=== PATIENT | male | born 1980 | race Asian ===

== ENCOUNTER 2022-01-18 09:09 | Emergency (ER) | payer OTHER, SELFPAY ==
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
[2022-01-18 09:21] VITALS: BP 132/94; PULSE 73; RESP 16; TEMP 37.1; O2SAT 98
== END 2022-01-18 09:40 | disposition home or self-care (01) ==
PROVIDERS: Emergency Provider Nurse Practitioner; PCP Internal Medicine
DX: S39.012A Strain of muscle, fascia and tendon of lower back, initial encounter (principal); V89.2XXA Person injured in unspecified motor-vehicle accident, traffic, initial encounter; M25.531 Pain in right wrist; I10 Essential (primary) hypertension
CPT/HCPCS: 99213; G0463

== ENCOUNTER 2024-12-29 08:25 | Outpatient (CLI) | payer OTHER, SELFPAY ==
--- OUTSIDE RECORDS SUMMARY | 2024-12-29 08:34 | XMS_ITS | Clinical Summary ---
Author Organization [facility] [address] [place] [address] Care Team Providers Care Chuck Tender Name Role Phone Adelso Silva DO Primary Care Provider [phone] Allergies No known active allergies Medications metoprolol barahona-hydrochloroth iaz 25-12.5 mg tablet extended release 24 hr Take by mouth daily Active ibuprofen (ADVIL,MOTRIN) 400 mg tablet Take by mouth every 8 (eight) hours as needed for pain Active ascorbic acid (vitamin C) 1,000 mg tablet Take 1,000 mg by mouth daily Active cholecalciferol, vitamin D3, (VITAMIN D3 ORAL) Take by mouth Active Active Problems No known active problems Immunizations Immunization Administration Dates Next Due Tdap 12/20/2020 Social History Tobacco Use Types Packs/Day Years Used Date Smoking Tobacco: Never Smokeless Tobacco: Never Tobacco Cessation:Counseling Given: Not Answered Personal Safety Answer Date Recorded Getting School Help Needed Not on file 08/31 Sex and Gender Information Value Date Recorded Sex Assigned at Not on file Legal Sex Male 4:37 PM CDT Gender Identity Not on file Sexual Orientation Not on file Obstetrics History Last Filed Vital Signs Vital Sign Reading Time Taken Comments Blood Pressure 147/99 04/02/2022 3:11 PM CDT Pulse 92 04/02/2022 3:11 PM CDT Temperature 36.7 C (98 F) 03/25/2022 4:46 PM CDT Respiratory Rate 16 03/25/2022 4:46 PM CDT Oxygen Saturation 98% 03/25/2022 4:46 PM CDT Inhaled Oxygen Concentration - - Weight 77.6 kg (171 lb) 04/02/2022 3:11 PM CDT Height 165.1 cm (5' 5) 04/02/2022 3:11 PM CDT Body Mass Index 28.46 04/02/2022 3:11 PM CDT Plan of Treatment Health Maintenance Due Date Last Done Comments Colon Cancer Screening-Colonoscopy 1979 Depression Screening 1979 Hepatitis C Screening 1979 Varicella Vaccines (1 of 2 - 13+ 2-dose series) 10/26/1992 Hepatitis B Screening 10/26/1997 Regular Well Visit/Exam 18-64 10/26/1997 Covid-19 Vaccine ( - 2023-2 5 season) 2024 05/05/2021, 07/26/2020, 06/28/2020 Influenza Vaccine (Season Ended) 2025 DTaP/Tdap/Td Vaccine (2 - Td or Tdap) 12/20/2030 12/20/2020 HPV Vaccines Aged Out No longer eligi ble based on patient's age to complete this topic Pneumococcal vaccine <65 Aged Out No longer eligible based on patient's age to complete this topic Insurance [facility] Care Teams Chuck Tender Relationship Specialty Start Date End Date Adelso Silva DO PCP - General Internal Medicine 03/25/22
--- OUTSIDE RECORDS SUMMARY | 2024-12-29 08:34 | XMS_ITS | Clinical Summary ---
Author Organization [facility] Address [address] [place] [id number] Phone Care Team Providers Care Block Trader Name Role Phone Unavailable Primary Care Provider Unavailabl e Social History Tobacco Use Types Packs/Day Years Used Date Smoking Tobacco: Never Assessed Sex and Gender Information Value Date Recorded Sex Assigned at Not on file Legal Sex Male 8:40 AM CDT Gender Identity Not on file Sexual Orientation Not on file Plan of Treatment Health Maintenance Due Date Last Done Comments DTAP/TDAP/TD VACCINES (1 - Tdap) 10/26/1998 HEPATITIS B VACCINES (1 of 3 - 19+ 3-dose series) 10/26/1998 COLORECTAL SCREENING 10/26/2024 Colorectal Cancer Screening 10/26/2024 FIT-DNA Q 3 years 10/26/2024 FIT/FOBT Q 1 year 10/26/2024 Flex Sig/CT Colonography Q 5 years 10/26/2024 INFLUENZA VACCINE (#1) 2025 HPV VACCINES Aged Out No longer eligi ble based on patient's age to complete this topic Insurance BCBS BLUE ACCESS/TRUE BLUE PPO
--- OUTSIDE RECORDS SUMMARY | 2024-12-29 08:34 | XMS_ITS | Referral Summary ---
Author Organization [facility] [address] [place] [address] Care Team Providers Care Rn Admission Name Role Phone Adelso Silva DO Primary Care Provider [phone] Allergies No known active allergies Medications metoprolol [...] on file Sexual Orientation Not on file Last Filed Vital Signs Vital Sign Reading [...] 04/02/2022 3:11 PM CDT Plan of Treatment Not on file Insurance [facility] Care Teams Rn Admission Relationship Specialty Start Date End Date Adelso Silva DO NPNeyda: [phone] PCP - General Internal Medicine 03/25/22
[2025-01-19 11:00] VITALS: BMI 29.1
--- NOTE | 2025-01-19 11:00 | WPDHOMESLEEP ---
Sleep Study - Home Unattended Date of Study: 12/29/24 Ordering Provider: Sharath Ardon MD Interpreting Provider: Gisselle Marley DO Home Sleep Study Type: Watch PAT Height: 1.65 m Weight: 79.379 kg Body Mass Index: 29.1 Neck Circumference (inches): 15 [place]: 0 Reason for Sleep Study snoring Sleep History The patient is a 44-year-old male that had a sleep study ordered by his primary care physician for evaluation of sleep apnea. The patient admits to snoring. He denies interruptions in breathing while asleep. He denies choking or gasping at night. He denies having trouble breathing on his back. He denies morning headaches. He does have a dry or sore mouth / throat in the morning. He denies nocturnal heartburn. He denies nocturia. He denies having trouble falling or staying asleep. He does have difficulty returning to sleep if he wakes up throughout the night. He denies any hypnotic or sedative use. He denies feeling anxious about sleep. He denies feeling tired or sleepy during the day. He denies feeling tired in the morning. He denies having the urge to fall asleep during the day. He denies feeling drowsy while driving. He denies sleep paralysis, cataplexy and hypnagogic/ hypnopompic hallucinations. He denies clenching or grinding his teeth. He denies kicking or jerking his legs excessively. He denies having a restless feeling in his legs. He goes to bed at 11:30 p.m. on work days and at midnight on his days off. It takes him 15 minutes to fall asleep. He gets 6 hours and 15 minutes of sleep on work days and 6 hours and 30 minutes on his days off. His sleep is somewhat restorative on days off. He denies taking any planned naps. He denies dream enactment behavior. He denies sleep walking. He consumes 1-2 cups of caffeinated beverage per day. He has 1 alcoholic beverage 1-2 nights per week. He denies tobacco use. He denies exercising on a regular basis. [facility] Past Medical History Medical History Prediabetes Essential hypertension Hypovitaminosis D Dyslipidemia Surgical History Surgical History History of left inguinal hernia repair (~2000) Social History Social History Smoking status: Never smoker Second hand tobacco smoke exposure: No Alcohol intake: current Alcohol use details: occasionally Substance use: never Substance use type: does not use Do You Feel Safe in your Home?: Yes Lack of Transportation: No Lack of Food: Never True Current Housing: I Have Housing Concerned About Future Housing: No Difficulty Paying Gas/Electric Bills: No Difficulty Paying for Meds: No Currently Unemployed: No Education: Master's Degree or Higher Difficulty w/ Childcare or Family Care: No Living arrangements: with family Occupation/Education: occupation Gender identity (if verbalized by the patient): Male Spiritual care concerns: No Medications Home Medications ?Medication ?Instructions ?Recorded ?Confirmed ?Type hydrocortisone 2.5 % topical cream 1 applic RECTAL DAILY PRN 11/05/24 11/23/24 Rx with perineal applicator hemorrhoids #30 grams (Anusol-HC) atorvastatin 10 mg tablet (Lipitor) 10 mg PO .QOD 11/23/24 11/23/24 History metoprolol succinate 50 mg 50 mg PO DAILY #90 tabs 11/23/24 11/23/24 Rx tablet,extended release 24 hr Sleep Procedure The sleep study was completed using [employer] a technically adequate device with seven channels: peripheral arterial tone, actigraphy, body position, snore, respiratory movement, pulse oximetry, sleep staging, and heart rate. Prior to using the device, the patient received verbal and written instructions for its application and was provided with the help desk phone number for additional telephonic instruction with 24-hour availability of qualified personnel to answer questions. The study was scored using CMS guidelines. Sleep Architecture The total recording time is 7 hrs, 45 min. The total sleep time is 6 hrs, 44 min. Sleep latency is 10 minutes. REM latency is 74 minutes. The patient had 17 episodes of waking. Sleep architecture shows 19.0% deep sleep, 55.0% light sleep, and (as % Total Sleep Time) showed NREM (Light 55.0%; Deep 19.0%), and a 26.0% stage REM. The patient spent 29.8% of total sleep time in the supine position. Sleep efficiency was 86.88. Respiratory Analysis The overall AHI (pAHI 4%:) is 19.9. The overall AHI (pAHI 3%:) is 33.8. The central AHI is 1.6. The AHI was 28.0 in NREM and 50.1 in REM sleep. The AHI was 44.1 in Supine and 29.4 in Non-supine sleep. Percent of Richie Brown respirations is 0.0. Oximetry Data The oxygen desaturation index (TATIANA 4%:) is 19.4. The mean saturation is 94%, and the lowest saturation is 78%. Time spent with saturation < 88% is 3.5 minutes. Snoring Profile Snoring average intensity is 43 dB. The patient snored above 45 decibels for 88.8 minutes, 22.0% of sleep time. Cardiac Profile The average pulse rate is 72 beats per minutes. The lowest pulse rate is 50 bpm. The highest pulse rate reported is 136 bpm. Suspected Afib total duration is 0:00:20, (h:m:sec). The longest Afibevent duration is 0:00:20. A suspected arrhythmia flagged in the sleep report does not necessarily imply an arrhythmia condition is present, but rather suggests that further investigation should be considered. A-Fib events < 60 seconds may be artifact. Premature beats occur <0.1 per minute. Assessment and Plan Assessment and Plan (1) BLUE (obstructive sleep apnea): Code(s): G47.33 - Obstructive sleep apnea (adult) (pediatric) Status: Acute Assessment and Plan: The patient had an overall AHI of 19.9 with desaturation down to 78%. This is consistent with moderate sleep apnea. I recommend that the patient be prescribed AutoPAP 5-15 cm H2O, CPAP mask/filters/tubing and heated humidity. A mandibular advancement device is also an acceptable treatment option. This should be used with all episodes of sleep.? Compliance should be reviewed within 31-90 days of starting therapy for usage greater than 4 hours per night greater than 70% of the nights. The patient should be asked about symptoms such as?excessive daytime sleepiness, quality of sleep, decreased nocturia, increased?mental functioning such as memory, mood, and concentration. Data The data obtained during this sleep study is adequate for interpretation. Certification This sleep study has been reviewed by a board certified sleep medicine physician.
== END 2024-12-30 10:51 | disposition home or self-care (01) ==
LOC: ANHCSM 08:25
PROVIDERS: PCP Family Medicine; Visit Provider Family Medicine
DX: G47.33 Obstructive sleep apnea (adult) (pediatric) (principal); G47.10 Hypersomnia, unspecified; R40.0 Somnolence
CPT/HCPCS: 95800

== ENCOUNTER 2025-03-22 01:57 | Day surgery (SDC) | payer OTHER, SELFPAY ==
[2025-03-10 14:59] VITALS: BMI 28.7
--- OUTSIDE RECORDS SUMMARY | 2025-03-22 01:59 | XMS_ITS | Clinical Summary ---
Author Organization [facility] [address] [place] [address] Care Team Providers Care Wafer Mounter Name Role Phone Adelso Silva DO Primary Care Provider [phone] Allergies No known active allergies Medications metoprolol [...] Screening 10/26/1997 Regular Well Visit/Exam 18-64 10/26/1997 HPV Vaccines (1 - 3-dose SCD M series) 10/26/2006 Covid-19 Vaccine (2024-2 6 season) 2025 05/05/2021, 07/26/2020, 06/28/2020 Influenza Vaccine (#1) 2025 DTaP/Tdap/Td Vaccine (2 - Td or Tdap) 12/20/2030 12/20/2020 Pneumococcal vaccine <65 Aged Out No longer eligible based on patient's age to complete this topic Insurance [facility] HMO/PPO Address: [facility] [id number] [place] [address] Care Teams Wafer Mounter Relationship Specialty Start Date End Date Adelso Silva DO PCP - General Internal Medicine 03/25/22
--- OUTSIDE RECORDS SUMMARY | 2025-03-22 01:59 | XMS_ITS | Clinical Summary ---
Author Organization [facility] Address [address] [place] [phone] Phone Care Team Providers Care Abseiling Instructor Name Role Phone Unavailable Primary Care Provider [...] (1 of 3 - 19+ 3-dose series) 10/15 HPV VACCINES (1 - 3-dose SCDM series) 10/26/2006 COLORECTAL SCREENING 10/26/2024 Colorectal Cancer Screening 10/26/2024 FIT-DNA Q 3 years 10/26/2024 FIT/FOBT Q 1 year 10/26/2024 Flex Sig/CT Colonography Q 5 years 10/26/2024 INFLUENZA VACCINE (#1) 2025 Insurance [employer] BLUE ACCESS/TRUE BLUE PPO
[2025-03-22 07:51] VITALS: BP 140/99; PULSE 115; RESP 19; TEMP 36.5; O2SAT 100
[2025-03-22] MEDS: LACTATED RINGERS 1,000 ML 150 ML IV CONT (08:00)
--- NOTE | 2025-03-22 08:07 | P.PNAN_ITS ---
Anes - Initial Pre Proc Eval Procedure: Operation Date: 03/22/25 08:30 Proposed Procedures p Screening Colonoscopy - Rg Augustine DO Date/Time: 03/22/25 08:07 Surgeon: Rg Augustine DO Pre Op Diagnosis: Neoplasm screening Patient Data Age: 44 Gender: M Height: 1.65 m Weight: 77.2 kg Last Vital Signs Temp 36.5 C 03/22/25 07:51 Pulse 115 H 03/22/25 07:51 Resp 19 03/22/25 07:51 BP 140/99 H 03/22/25 07:51 Pulse Ox 100 03/22/25 07:51 O2 Del Method Room Air 03/22/25 07:51 Allergies Allergy/AdvReac Type Severity Reaction Status Date / Time No Known Allergies Allergy Verified 03/22/25 07:50 Home Medications ?Medication ?Instructions ?Recorded ?Confirmed ?Type hydrocortisone 2.5 % topical cream 1 applic RECTAL WIL LY PRN 11/05/24 03/10/25 Rx with perineal applicator hemorrhoids #30 grams (Anusol-HC) metoprolol succinate 50 mg 50 mg PO DAILY #90 tabs 03/1103/22/25 Rx tablet,extended release 24 hr AutoPAP 5-15 cm H2O, CPAP #1 ea 01/25/25 Rx mask/filters/tubing and heated humidity rosuvastatin 40 mg tablet (Crestor) 40 mg PO .x2 weekl y 03/10/25 03/22/25 History Patient hx anesthesia problems: none Family hx anesthesia problems: none Results Review: All pre-operative results and documents have been reviewed as part of the pre- operative evaluation. [facility] Past Medical History Medical History Prediabetes Essential hypertension Hypovitaminosis D Dyslipidemia Surgical History Surgical History History of left inguinal hernia repair (~2000) Social History Social History Smoking status: Never smoker Second hand tobacco smoke exposure: No Alcohol intake: current Alcohol use details: occasionally Substance use type: does not use Do You Feel Safe in your Home?: Yes Lack of Transportation: No Lack of Food: Never True Current Housing: I Have Housing Concerned About Future Housing: No Difficulty Paying Gas/Electric Bills: No Difficulty Paying for Meds: No Currently Unemployed: No Education: Master's Degree or Higher Difficulty w/ Childcare or Family Care: No Living arrangements: with family Occupation/Education: occupation Gender identity (if verbalized by the patient): Male Anes - Eval Final PreProcedure Day of Procedure 03/22/25 08:07 Patient weight: overweight Heart: regular rate and rhythm Lungs: clear to auscultation Airway: Mallampati scale class II Neurological: alert and oriented Last oral intake: >/= 8 hours ASA classification: III Emergent: no Anesthetic plan: proceed Anesthesia type and monitoring: general GIVS and standard monitoring Results Review: All pre-operative results and documents have been reviewed as part of the pre- operative evaluation. Informed Consent: The patient's anesthetic plan and its attendant risks and benefits were discussed with the patient/family/POA. Questions were solicited and answers provided to the satisfaction of the patient/family/POA.
--- NOTE | 2025-03-22 08:40 | PM.IMHP ---
H&P: HPI History of Present Illness Date/Time: 03/22/25 08:40 Chief Complaint: screening for colorectal cancer Narrative: this is a 44-year-old man who presents for his 1st colonoscopy. He denies any family history of colon cancer. He has had occasional hemorrhoid bleeding but denies any melena or hematochezia. Review of Systems Review of Systems: All systems reviewed & are unremarkable except as noted in HPI and below Constitutional: Constitutional: Denies chills, Denies fever(s), Denies headache(s) and Denies weight loss Eyes: Eyes: Denies change in vision ENT: Denies dizziness, Denies headache(s), Denies neck mass and Denies throat swelling Cardiovascular: Cardiovascular: Denies chest pain, Denies lightheadedness and Denies dyspnea Respiratory: Respiratory: Denies cough, Denies dyspnea and Denies wheezing Gastrointestinal: Gastrointestinal: Denies abdominal pain, Denies change in bowel habits, Denies nausea and Denies vomiting Genitourinary: Genitourinary: Denies hematuria and Denies dysuria Musculoskeletal: Musculoskeletal: Reports as per HPI Integumentary/Breasts: Skin/Breast: Reports as per HPI Neurologic: Denies dizziness and Denies headache(s) Allergic/Immunologic: Allergic/Immunologic: Denies throat swelling and Denies wheezing PMFSH Past Medical History Medical History Prediabetes Essential hypertension Hypovitaminosis D Dyslipidemia Surgical History Surgical History History of left inguinal hernia repair (~2000) Social History Social History Smoking status: Never smoker Second hand tobacco smoke exposure: No Alcohol intake: current Alcohol use details: occasionally Substance use type: does not use Do You Feel Safe in your Home?: Yes Lack of Transportation: No Lack of Food: Never True Current Housing: I Have Housing Concerned About Future Housing: No Difficulty Paying Gas/Electric Bills: No Difficulty Paying for Meds: No Currently Unemployed: No Education: Master's Degree or Higher Difficulty w/ Childcare or Family Care: No Living arrangements: with family Occupation/Education: occupation Gender identity (if verbalized by the patient): Male Meds Home Medications and Allergies Home Medications ?Medication ?Instructions ?Recorded ?Confirmed ?Type hydrocortisone 2.5 % topical cream 1 applic RECTAL DAILY PRN 11/05/24 03/10/25 Rx with perineal applicator hemorrhoids #30 grams (Anusol-HC) metoprolol succinate 50 mg 50 mg PO DAILY #90 tabs 11/23/24 03/22/25 Rx tablet,extended release 24 hr AutoPAP 5-15 cm H2O, CPAP #1 ea 01/25/25 Rx mask/filters/tubing and heated humidity rosuvastatin 40 mg tablet (Crestor) 40 mg PO .x2 weekly 03/10/25 03/22/25 History Allergies Allergy/AdvReac Type Severity Reaction Status Date / Time No Known Allergies Allergy Verified 03/22/25 07:50 Vital Signs Vital Signs - 24 hr 03/22/25 07:51 Temperature 97.7 F Pulse Rate 115 H Respiratory Rate 19 Blood Pressure 140/99 H Pulse Oximetry 100 Oxygen Delivery Room Air Exam Const: General: no acute distress and alert Orientation/consciousness: patient oriented x3 HENMT: Head: normocephalic and atraumatic Ears: hearing grossly normal bilaterally Face/Nose/Sinus: Normal nares present Mouth: Yes Normal oral and palatal mucosa present Eyes: Periorbital: periorbital findings normal Sclera: sclerae normal EOM: EOMs intact bilaterally Neck: Neck: normal visual inspection, no lymphadenopathy and trachea midline Chest: Chest palpation & inspection: normal inspection of the chest Resp: Effort & Inspection: normal respiratory effort Auscultation: clear to auscultation bilaterally Cardio: Jugular venous distension: no JVD Rate: regular rate Rhythm: regular rhythm Heart sounds: S1 normal heart sound present and S2 normal heart sound present Peripheral pulses: Peripheral pulses 2+ throughout GI: Inspection: normal to inspection GI Palp: Yes Soft to palpation, No Tenderness to palpation present (GI), No Guarding due to palpation present (GI) and No Rebound tenderness present Percussion: Yes normal to percussion Auscultation: normal bowel sounds : General: Yes no CVA tenderness Back/Spine/Pelvis: Back: no CVA tenderness Neuro: General: patient oriented x3, no focal motor deficits and CN's II-XI intact bilaterally Cognition (Neuro): normal cognition Speech: normal speech Motor exam (neuro): 5/5 motor strength present throughout Extrem: General: capillary refill normal and no clubbing, cyanosis or edema Assessment and Plan Assessment and plan (1) Screening for colorectal cancer: Code(s): Z12.11 - Encounter for screening for malignant neoplasm of colon; Z12.12 - Encounter for screening for malignant neoplasm of rectum Status: Acute Assessment and Plan: I have recommended colonoscopy. I have discussed the procedure, risks, benefits, and alternatives. Questions were answered. Patient is agreeable to proceed.
--- NOTE | 2025-03-22 08:48 | S_PTH ---
PATIENT: All Pisano LOC: [facility] U#:[id number] AGE/SX: 44/M ROOM: RE03/22/[address]: Rg Augustine DO : 1980 BED: DIS: 03/22/2025 SPEC #: [id number] RECD: 03/22/25 10:54 STATUS: ROSARIO REQ #: [id number] ELIO: 03/22/25 08:[address]: Rg Augustine DEPT: [facility] Surgical RECD BY: Chelsea Stoner ENTERED: 03/22/25 10:54 SP TYPE: Surgical OTHR DR: Sharath Ardon MD Tissues: A - Colon Polypectomy Procedures: Hematoxylin and Eosin Stain Gross and Microscopic Level 4
[2025-03-22 08:55] VITALS: BP 113/77; PULSE 91; RESP 21; O2SAT 99
[2025-03-22 09:05] VITALS: BP 115/83; PULSE 87; RESP 21; O2SAT 98
[2025-03-22 09:15] VITALS: BP 134/96; PULSE 91; RESP 19; O2SAT 100
== END 2025-03-22 09:29 | disposition home or self-care (01) ==
PROVIDERS: PCP Family Medicine; Visit Provider Surgery
PROC: 0DJD8ZZ Inspection of Lower Intestinal Tract, Via Natural or Artificial Opening Endoscopic (ICD-10-PCS; CPT 45378; principal; 2025-03-22 08:30)
DX: Z12.11 Encounter for screening for malignant neoplasm of colon (principal); D12.2 Benign neoplasm of ascending colon; K64.8 Other hemorrhoids; E78.5 Hyperlipidemia, unspecified; R73.03 Prediabetes; I10 Essential (primary) hypertension; E55.9 Vitamin D deficiency, unspecified; Z98.890 Other specified postprocedural states
CPT/HCPCS: 45385; 88305; J2003; J2704; J7120